=== PATIENT | female | born 1935 | race Caucasian/White ===

== ENCOUNTER → 2016-07-22 | Outpatient (CLI) | payer MEDICARE, OTHER | END | disposition home or self-care (01) | LOC: LAB.O 09:40 | PROVIDERS: ATTEND Family Medicine | DX: Z79.899 Other long term (current) drug therapy (principal); E55.9 Vitamin D deficiency, unspecified; R53.83 Other fatigue; D51.3 Other dietary vitamin B12 deficiency anemia ==

== ENCOUNTER → 2016-11-25 | Outpatient (CLI) | payer MEDICARE, OTHER | LOC: GMAL 11:12 | PROVIDERS: ATTEND Family Medicine | DX: N30.00 Acute cystitis without hematuria (principal) ==

== ENCOUNTER → 2016-12-07 | Outpatient (CLI) | payer MEDICARE, OTHER | END | disposition home or self-care (01) | LOC: GMAL 11:16 | PROVIDERS: ATTEND Family Medicine | DX: N30.00 Acute cystitis without hematuria (principal) ==

== ENCOUNTER 2017-02-14 02:33 | Emergency (ER) | payer MEDICARE, OTHER ==
--- NOTE | 2017-02-14 03:11 | ED.PDOC ---
History of Present Illness - General Chief Complaint: General Stated Complaint: heart papilations Time Seen by Provider: 02/14/17 02:38 Source: patient, RN notes reviewed, Vital Signs reviewed, family - Daughter Exam Limitations: no limitations - History of Present Illness Initial Comments: Patient presents to ER via EMS with c/o palpitations. Feels she is atrial fibrillation again. She has been cardioverted twice before. Most recently she was in [facility] for this on 01/22/17. Reports she spoke to store mgr, Dr. Gerard who wants her to go to [facility]. Spoke with Dr. Escobedo who would like EKG sent to him for evaluation. Timing/Duration: 1/2 hour Severity: moderate Improving Factors: nothing Worsening Factors: nothing Associated Symptoms: denies symptoms Allergies/Adverse Reactions: Allergies Iodine Allergy (Verified 02/14/17 03:09) Review of Systems - Review of Systems Constitutional: States: no symptoms reported Respiratory: States: no symptoms reported Cardiology: States: palpitations. Denies: chest pain Gastrointestinal/Abdominal: States: no symptoms reported Musculoskeletal: States: no symptoms reported Skin: States: no symptoms reported Neurological: States: no symptoms reported All other Systems: No Change from Baseline Past Medical History (General) - Patient Medical History Hx Seizures: Yes Hx Stroke: Yes Hx Dementia: No Hx Asthma: No Hx of COPD: No Hx Cardiac Disorders: Yes Hx Congestive Heart Failure: Yes Hx Pacemaker: Yes Hx Hypertension: Yes Hx Thyroid Disease: No Hx Diabetes: No Hx Gastroesophageal Reflux: No Hx Renal Disease: No Hx Cancer: No Hx of HIV: No Hx Hepatitis C: No Hx MRSA: No Surgical History: cholecystectomy, Hysterectomy - Vaccination History Hx Tetanus, Diphtheria Vaccination: No Hx Influenza Vaccination: Yes Hx Pneumococcal Vaccination: Yes - Social History Hx Tobacco Use: No Hx Alcohol Use: No Hx Substance Use: No Hx Substance Use Treatment: No Hx Depression: No - Female History Patient is a Female of Child Bearing Age (10 -59 yrs old): No - Triage Comment ED Triage Comment: Tele HR 150 Sinus Tachy noted --no ectopic noted---C/O nausea also---anxeity noted. Pt took ASA 325mg PO x1 at home and then call EMS. Family Medical History - Family History Mother Family History: Unknown Physical Exam - Physical Exam General Appearance: Alert, Comfortable, No apparent distress, Well Developed, Well Groomed, Well Hydrated, Well Nourished Neck: supple, normal inspection Respiratory: lungs clear, normal breath sounds, no respiratory distress, no accessory muscle use Cardiovascular/Chest: no gallop, no murmur, tachycardia Peripheral Pulses: dorsalis pedis,right: 2+, dorsalis pedis,left: 2+ Extremity: normal inspection, no pedal edema Neurologic: alert, normal mood/affect, oriented x 3 Skin Exam: normal color, warm/dry Comments: Vital Signs 02/14/17 02:54 Temperature 98.6 F Pulse Rate 150 H Pulse Rate [Rt 150 H arm] Respiratory 20 Rate Blood Pressure 105/54 [Rt arm] O2 Sat by Pulse 98 Oximetry Progress - Progress Progress: 02/14/17 03:18 Dr. Escobedo, Psych Nurse, looked at EKG and would like her started on Cardizem. Went back to room and patients heart rate dropped to 105 w/ BP of 93/69. Will hold off on medications, give NS bolus and watch her for now. 02/14/17 04:42 Patient has maintained a heart rate in the 100's-110's and has been sleeping. Vital Signs 02/14/17 02/14/17 02/14/17 02:54 03:22 03:46 Temperature 98.6 F Pulse Rate 150 H 112 H 112 H Pulse Rate [Rt 150 H 112 H 111 H arm] Respiratory 20 18 18 Rate Blood Pressure 105/54 93/69 85/52 [Rt arm] O2 Sat by Pulse 98 96 95 Oximetry 02/14/17 04:16 Temperature 98.5 F Pulse Rate 109 H Pulse Rate [Rt 109 H arm] Respiratory 20 Rate Blood Pressure 104/63 [Rt arm] O2 Sat by Pulse 96 Oximetry Discussed with daughter. Will d/c home and have her follow up with her Psych Nurse. She is agreeable with plan. - Results/Orders Results/Orders: Laboratory Tests 02/14/17 02/14/17 02:45 02:45 WBC 6.7 RBC 4.06 L Hgb 12.4 Hct 37.2 MCV 91.7 MCH 30.5 MCHC 33.3 RDW 15.9 H Plt Count 245 MPV 8.1 Absolute Neuts (auto) 4.10 Absolute Lymphs (auto) 2.00 Absolute Monos (auto) 0.50 Absolute Eos (auto) 0.10 Absolute Basos (auto) 0.00 Neutrophils % 61.6 Lymphocytes % 29.5 Monocytes % 7.4 Eosinophils % 1.1 Basophils % 0.4 Sodium 137 Potassium 3.5 L Chloride 104 Carbon Dioxide 24 Anion Gap 12.5 BUN 23 H Creatinine 1.40 H BUN/Creatinine Ratio 16.4 Random Glucose 138 H Serum Osmolality 279.7 Calcium 9.0 Total Bilirubin 0.7 AST 30 ALT 23 Alkaline Phosphatase 77 Creatine Kinase 74 CK-MB (CK-2) 2.8 CK-MB (CK-2) % Not Reportable Troponin I 0.03 Serum Total Protein 7.1 Albumin 3.7 Globulin 3.4 Albumin/Globulin Ratio 1.1 - EKG/XRAY/CT EKG: Sinus, Tachy, LBBB Comments: Rate 150bpm Departure - Departure Clinical Impression: Sinus tachycardia Time of Disposition: 04:44 Disposition: Discharge to Home or Self Care Condition: Good Departure Forms: ED Discharge - Pt. Copy, Patient Portal Self Enrollment Instructions: DI for Atrial Fibrillation Diet: resume usual diet Activity: increase activity as tolerated Referrals: Олег Gómez III, MD [Primary Care Provider] - 1-2 Weeks Additional Instructions: Follow up with Dr. Spangler, Psych Nurse, this week. Return to ER for new or worsening symptoms
[2017-02-14] MEDS ORDERED: SODIUM CHLORIDE 0.9% 1000ML 1,000 ML IVS ONE (03:23)
[2017-02-14 04:18] VITALS: TEMP 98.5; O2SAT 96
[2017-02-14 05:10] VITALS: BP 82/59
== END 2017-02-14 05:11 | disposition home or self-care (01) ==
LOC: ER 02:33
DX: R00.0 Tachycardia, unspecified (principal); I44.7 Left bundle-branch block, unspecified; I11.0 Hypertensive heart disease with heart failure; I50.9 Heart failure, unspecified; Z95.0 Presence of cardiac pacemaker; Z86.73 Personal history of transient ischemic attack (TIA), and cerebral infarction without residual deficits; Z88.8 Allergy status to other drugs, medicaments and biological substances
CPT/HCPCS: 36415; 80053; 82550; 82553; 84484; 85025; 93005; J7030

== ENCOUNTER → 2018-06-07 | Outpatient (CLI) | payer MEDICARE, OTHER | LOC: LAB.O 08:43 | PROVIDERS: ATTEND Family Medicine | DX: I10 Essential (primary) hypertension (principal); E03.9 Hypothyroidism, unspecified ==

== ENCOUNTER → 2018-10-11 | Outpatient (CLI) | payer MEDICARE, OTHER | LOC: LAB.O 08:18 | PROVIDERS: ATTEND Psychiatry & Neurology Neurology | DX: R53.83 Other fatigue (principal); D51.3 Other dietary vitamin B12 deficiency anemia; Z79.899 Other long term (current) drug therapy ==

== ENCOUNTER → 2019-05-31 | Outpatient (CLI) | payer MEDICARE, OTHER | DX: Z79.899 Other long term (current) drug therapy (principal) ==

== ENCOUNTER → 2019-06-02 | Outpatient (CLI) | payer MEDICARE, OTHER | DX: R51 Headache (principal) ==

== ENCOUNTER → 2019-09-26 | Outpatient (CLI) | payer MEDICARE, OTHER | LOC: GMAL 10:34 | PROVIDERS: ATTEND Family Medicine | DX: R10.84 Generalized abdominal pain (principal); Z79.899 Other long term (current) drug therapy ==

== ENCOUNTER → 2019-12-18 | Outpatient (CLI) | payer MEDICARE, OTHER | LOC: BFHH 12:23 | PROVIDERS: ATTEND Internal Medicine Infectious Disease | DX: A41.9 Sepsis, unspecified organism (principal); I33.0 Acute and subacute infective endocarditis; I50.9 Heart failure, unspecified; I49.5 Sick sinus syndrome; I48.91 Unspecified atrial fibrillation; Z99.0 Dependence on aspirator ==

== ENCOUNTER → 2019-12-25 | Outpatient (CLI) | payer MEDICARE, OTHER | LOC: BFHH 11:32 | PROVIDERS: ATTEND Internal Medicine Infectious Disease | DX: I33.0 Acute and subacute infective endocarditis (principal); I13.0 Hypertensive heart and chronic kidney disease with heart failure and stage 1 through stage 4 chronic kidney disease, or unspecified chronic kidney disease; N18.9 Chronic kidney disease, unspecified; R78.81 Bacteremia; I25.10 Atherosclerotic heart disease of native coronary artery without angina pectoris; I48.0 Paroxysmal atrial fibrillation; I50.9 Heart failure, unspecified ==

== ENCOUNTER → 2020-01-01 | Outpatient (CLI) | payer MEDICARE, OTHER | LOC: BFHH 11:53 | PROVIDERS: ATTEND Internal Medicine Infectious Disease | DX: I33.0 Acute and subacute infective endocarditis (principal); R78.81 Bacteremia; I42.9 Cardiomyopathy, unspecified; I48.0 Paroxysmal atrial fibrillation; I11.0 Hypertensive heart disease with heart failure; I50.9 Heart failure, unspecified ==

== ENCOUNTER → 2020-01-08 | Outpatient (CLI) | payer MEDICARE, OTHER | LOC: BFHH 11:24 | PROVIDERS: ATTEND Internal Medicine Infectious Disease | DX: I33.0 Acute and subacute infective endocarditis (principal); R78.81 Bacteremia; I42.9 Cardiomyopathy, unspecified; I48.0 Paroxysmal atrial fibrillation; I11.0 Hypertensive heart disease with heart failure; I50.9 Heart failure, unspecified ==

== ENCOUNTER → 2020-02-06 | Outpatient (CLI) | payer MEDICARE, OTHER | LOC: BFHH 12:28 | PROVIDERS: ATTEND Internal Medicine Infectious Disease | DX: I33.0 Acute and subacute infective endocarditis (principal); R78.81 Bacteremia; I11.0 Hypertensive heart disease with heart failure; B96.20 Unspecified Escherichia coli [E. coli] as the cause of diseases classified elsewhere; I50.9 Heart failure, unspecified ==

== ENCOUNTER → 2020-04-02 | Outpatient (CLI) | payer MEDICARE, OTHER | LOC: BFHH 10:48 | PROVIDERS: ATTEND Internal Medicine Infectious Disease | DX: I33.0 Acute and subacute infective endocarditis (principal) ==

== ENCOUNTER → 2020-04-23 | Outpatient (CLI) | payer MEDICARE, OTHER | LOC: LAB.O 10:36 | PROVIDERS: ATTEND Internal Medicine Infectious Disease | DX: R78.81 Bacteremia (principal); I38 Endocarditis, valve unspecified ==